=== PATIENT | female | born 1955 | race Two or more races ===

== ENCOUNTER → 2019-09-17 | Day surgery (SDC) | payer OTHER ==
[~2019-09-17] VITALS: Ht 149.9 cm; Wt 56.7 kg
[~2019-09-17] MED LIST: ACETAMINOPHEN 325MG TABLET PO PRN; APIX5TAB MT; FENTANYL CITRATE/PF 50MCG/ML 2ML VIAL ONE; INSU100I28 SQ; IODIXANOL 320MG/ML 100 ML BOTTLE IV ONE; LIDOCAINE HCL 1% 20ML VIAL (Pyxis) INJ ONE; LISI10TA5 PO; METO25TA6 MT; MIDAZOLAM HCL 2 MG/2 ML VIAL ONE; MORPHINE SULFATE 2 MG/ML CPJ (NOT FOR IM USE) IV PRN; ONDANSETRON HCL 4MG/2ML INJ IV PRN; SIMV40TA5 PO
[2019-09-17 11:35] LABS: HEMATOCRIT 43.1 % (36.0-48.0); HEMOGLOBIN 14.3 g/dL (12.0-16.0); MEAN CORPUSCULAR HEMOGLOBIN 28.7 pg (28.0-32.0); MEAN CORPUSCULAR VOLUME 86.4 fL (81.0-99.0); PLATELET 215 x1000/uL (130-400); RED BLOOD CELL COUNT 4.98 mill/uL (4.2-5.4); RED CELL DISTRIBUTION WIDTH 13.5 % (11.6-14.6)
[2019-09-17 11:40] LABS: CHLORIDE 108 mEq/L (98-107)
== END | disposition home or self-care (01) ==
LOC: CCL 10:02
PROVIDERS: ATTEND Internal Medicine Cardiovascular Disease
DX: R07.9 Chest pain, unspecified (principal); R94.39 Abnormal result of other cardiovascular function study; I10 Essential (primary) hypertension; E11.9 Type 2 diabetes mellitus without complications; E78.5 Hyperlipidemia, unspecified; Z79.4 Long term (current) use of insulin; Z79.899 Other long term (current) drug therapy; Z88.8 Allergy status to other drugs, medicaments and biological substances
CPT/HCPCS: 36415; 80048; 85027; 93005; 93458; C1769; C1887; C1893; J1644; J2250; J3010; J3490; Q9967